=== PATIENT | male | born 1990 | race Caucasian/White ===

== ENCOUNTER 2024-04-27 08:55 | Outpatient (AMB) | payer OTHER, SELFPAY ==
--- NOTE | 2024-04-27 09:00 | MHC.PC.OV ---
Vital Signs 04/27/24 09:09 Height 5 ft 6.93 in Weight 246 lb 4 oz BMI 38.6 BP 110/80 Blood Pressure Location Lt brachial Position Sitting Respiration 16 Pulse 74 Pulse Source Pulse Oximeter Temp 97.6 F Temp Source Oral Pulse Oximetry (%) 96 Oxygen Delivery Method Room Air Intake Visit Reasons: Establish care Intake Note: New patient visit Allergies Penicillins Allergy (Unknown, Verified 04/27/24 09:05) Unknown codeine Allergy (Verified 04/27/24 09:05) Nausea Medication List - Last Reconciled 04/27/24 by Heather Patiño PA-C No Known Home Meds Tobacco use date assessed: 04/27/24 Dental Screening Dental Screen Date: 04/27/24 Did you have a dental visit in the last 12 months?: No Did you have a dental problem in the last 6 months where you did not have access to dental care?: No Was dental information given to patient?: Patient has dentist HPI Establish care HPI Details Patient is a 33-year-old male who presents today to establish care he is transferring from [place]. He states his last physical was over 5 years ago when he needs one. He states he was never really diagnosed with any medical issues but in the last couple years has had some issues with anxiety, depression and grief. HEENT: He states his ears feel blocked. He gets these sx this time of year. Denies any sinus pain or pressure. Does have seasonal allergies. Psych: He has been dealing with grief since loss of his mother last year. She was struck by a vehicle and he was responsible for dealing with everything related to the . He states that he had to handle the burial and medical decisions from the hospital. He states in the last six weeks he has also had to obtain custody of his 6 y/o niece. His sister is a drug addict and he states that his niece has experienced a lot of trauma and is barely verbal. They have been working with a therapist and he has had to work on potty training her. He has a 7 and 9-year-old son who have been overall doing okay with this transition. His is supportive. No SI/HI. Following with a therapist. He wonders about starting medication because he just feels overwhelmed. [facility] Medical History (Updated 04/27/24 @ 10:01 by Heather Patiño PA-C) Grief reaction with prolonged bereavement Generalized anxiety disorder Family History (Updated 04/27/24 @ 09:08 by Sabine Palacios CMA) Father Alcoholic Paternal Grandfather Alcoholic Other Substance use Social History (Updated 04/27/24 @ 09:07 by Sabine Palacios CMA) Housing: House Patient Tobacco Use Status: Former Tobacco user Cigarette Packs Per Day: 1 Years Smoked: 2 e-Cigarette/Vaping Use: Never Used Second Hand Smoke Exposure: No Substance Use Type: Former Substance User and Marijuana service: No Current occupational status: employed Current occupation: [employer] Current occupational exposures/hazards: Yes (chemicals) Cognitive needs: No Hearing needs: Yes (Hearing loss, tubes as a child. Possibly impacted cerum) Vision needs: No Questionnaire PHQ-9 Over the last 2 weeks, how often have you been bothered by any of the following problems? 1. Little interest or pleasure in doing things: more than half the days 2. Feeling down, depressed, or hopeless: nearly every day 3. Trouble falling or staying asleep, or sleeping too much: nearly every day 4. Feeling tired or having little energy: more than half the days 5. Poor appetite or overeating: more than half the days 6. Feeling bad about yourself - or that you are a failure or have let yourself or your family down: more than half the days 7. Trouble concentrating on things, such as reading the newspaper or watching television: several days 8. Moving or speaking so slowly that other people could have noticed. Or the opposite - being so fidgety or restless that you have been moving around a lot more than usual: not at all 9. Thoughts that you would be better off or of hurting yourself in some way: not at all Total score: 15 Depression Screening Interpretation: Positive Depression Screening Follow-up: Existing condition, In treatment and New Medication prescribed Depression Screening Done: Yes 79215 - PHQ-9 Billing: Yes Source: Developed by Drs. Surjit Sierra, Lenora Pedro, Juan Adams and colleagues, with an educational francheska from [employer]. Thrive Questionnaire Date Thrive assessed: 04/27/24 I am a: Patient What is your living situation today?: I have a steady place to live Within the past 12 months, did the food you bought not last and you didn't have the money to get more?: Never true Within the past 12 months, did you worry whether your food would run out before you got money to buy more?: Never true Do you have trouble paying for medicines?: No Do you have trouble getting transportation to medical appointments?: No Do you have trouble paying your heating and electricity bill?: No Do you have trouble taking care of your child, family member or friend?: No Do you have trouble with day-to-day activities such as bathing, preparing meals, shopping, managing finances, etc.?: No Are you currently unemployed and looking for a job?: No Are you interested in more education?: No Please select the resources that you would like help with: None Currently or been in a relationship where the following occur: No concerns reported THRIVE Score: 0 AUDIT C Alcohol Use Questionnaire (AUDIT-C) 1. How often do you have a drink containing alcohol?: 2-3 times a week 2. How many drinks containing alcohol do you have on a typical day when you are drinking?: 1 or 2 3. How often do you have six or more drinks on one occasion?: Never Total Score: 3 Score Reviewed/Action Taken: Yes WLI-7 AMB Questionnaire WIL-7 Date WIL - 7 assessed: 04/27/24 Feeling nervous, anxious, or on edge: 3 = Nearly every day Not being able to stop or control worryin = Nearly every day Worrying too much about different things: 2 = More than half the days Trouble relaxin = Nearly every day Being so restless that it is hard to sit still: 2 = More than half the days Becoming easily annoyed or irritable: 3 = Nearly every day Feeling afraid as if something awful might happen: 2 = More than half the days Total WIL-7 score (0-4 normal; 5-9 mild; 10-14 moderate; 15-21 severe): 18 Source: Developed by Drs. Surjit Sierra, Lenora Pedro, Juan Adams and colleagues, with an educational francheska from [employer] WIL-7 Assessment Billing WIL-7 Assessment Tool: WIL-7 Assessment [id number] Physical exam (Primary Care) Vital Signs: Last Vital Signs Temp 97.6 F 04/27/24 09:09 Pulse 74 04/27/24 09:09 Resp 16 04/27/24 09:09 BP 110/80 04/27/24 09:09 Pulse Ox 96 04/27/24 09:09 Oxygen Delivery Method Room Air 04/27/24 09:09 BMI result Body Mass Index 38.6 Tobacco/Smoking Status: Tobacco use Status Tobacco use date assessed 04/27/24 04/27/24 09:13 Patient Tobacco Use Status Former Tobacco user 04/27/24 09:13 e-Cigarette/Vaping Use Never Used 04/27/24 09:13 Depression Screening Interpretation: Positive Depression Screening Follow-up: Existing condition, In treatment and New Medication prescribed Currently or been in a relationship where the following occur: No concerns reported Const Orientation/consciousness: patient oriented x3 HENMT Ears: hearing grossly normal bilaterally, TM normal on the left and unable to visualize TM (cerumen impaction) on the right General nose exam: No nasal polyps present Face and sinus: Yes sinuses nontender Mouth: Normal oral and palatal mucosa present Eyes Pupils: Equal, round and reactive pupils present EOM: EOMs intact bilaterally Neck Neck: Yes full ROM and Yes no lymphadenopathy Thyroid: Thyroid normal Chest Chest palpation & inspection: normal inspection of the chest Resp Auscultation: clear to auscultation bilaterally Cardio Rate: regular rate Rhythm: regular rhythm Heart sounds: S1 normal heart sound present and S2 normal heart sound present Peripheral pulses: Peripheral pulses 2+ throughout GI Other: Soft, nontender Auscultation: normal bowel sounds Rectal Exam - Male: Yes deferred General: Yes no CVA tenderness Back/Spine/Pelvis Other: Nontender Back: no CVA tenderness Skin General skin exam: no rashes or lesions noted Neuro General: patient oriented x3, gait normal, CN's II-XI intact bilaterally and deep tendon reflexes 2+ bilaterally Cranial nerves: Yes Equal, round and reactive pupils present Motor exam (neuro): 5/5 motor strength present throughout Sensory Exam: double simultaneous stimulation for sensation normal Coordination: [id number] test normal and Romberg test negative Extrem General: Yes normal to inspection and Yes full ROM Psych Affect: normal affect Attitude: cooperative Thought process: Normal thought process present Thought content: Normal thought content present Insight: Good insight present (Psych) Judgement: Good judgement present (Psych) Assessment and Plan Assessment & Plan (1) Routine general medical examination at a [facility] care facility: Code(s): Z00.00 - Encounter for general adult medical examination without abnormal findings Plan: Health maintenance reviewed. Labs ordered today. (2) Generalized anxiety disorder: Code(s): F41.1 - Generalized anxiety disorder Plan: We will start on Zoloft. Discussed risks and benefits and adverse effects of this medication. Follow up in 4 weeks to be reassessed. Sooner if needed. Continue following with a therapist. (3) Grief reaction with prolonged bereavement: Code(s): F43.29 - Adjustment disorder with other symptoms Plan: As above. (4) Seasonal allergic rhinitis due to pollen: Code(s): J30.1 - Allergic rhinitis due to pollen Plan: We will start on Xyzal and Flonase. (5) Impacted cerumen of right ear: Code(s): H61.21 - Impacted cerumen, right ear Plan: Debrox drops ordered. Advised patient to use these and follow up for an ear lavage. Orders: Orders Comprehensive [place]. Panel Fast Today F41.1 - Generalized anxiety disorder, F43.29 - Adjustment disorder with other symptoms, Z00.00 - Encounter for general adult medical examination without abnormal findings Complete Blood Count Auto Diff Today F41.1 - Generalized anxiety disorder, F43.29 - Adjustment disorder with other symptoms, Z00.00 - Encounter for general adult medical examination without abnormal findings Lipid Panel Today F41.1 - Generalized anxiety disorder, F43.29 - Adjustment disorder with other symptoms, Z00.00 - Encounter for general adult medical examination without abnormal findings TSH reflex Free T4 Today F41.1 - Generalized anxiety disorder, F43.29 - Adjustment disorder with other symptoms, Z00.00 - Encounter for general adult medical examination without abnormal findings Medications: New levocetirizine (Xyzal) 5 mg PO DAILY 90 tabs 0RF fluticasone propionate 50 mcg/actuation (Flonase Allergy Relief) administer into each nostril 2 sprays intranasal DAILY 16 grams 0RF sertraline (Zoloft) 25 mg PO DAILY 30 tabs 1RF carbamide peroxide 6.5% (Debrox) 5 drps otic (ear) right Q12H 5 days 15 mL 0RF Coding Level of Care Code Est Pt Prev Care 18-39y(53185) Diagnoses Routine general medical examination at a health care facility Z00.00 Generalized anxiety disorder F41.1 Grief reaction with prolonged bereavement F43.29 Seasonal allergic rhinitis due to pollen J30.1 Impacted cerumen of right ear H61.21 Additional Codes WIL-7 Assessment Billing - WIL-7 Assessment Tool: WIL-7 Assessment [id number] ([id number])
[2024-04-27 09:09] VITALS: BP 110/80; PULSE 74; RESP 16; TEMP 36.4; O2SAT 96; BMI 38.6
== END 2024-04-27 09:57 | disposition home or self-care (01) ==
LOC: HO.HMGFM 08:56
PROVIDERS: PCP Physician Assistant; Visit Provider Physician Assistant
DX: Z00.00 Encounter for general adult medical examination without abnormal findings (principal); F41.1 Generalized anxiety disorder; F43.29 Adjustment disorder with other symptoms; J30.1 Allergic rhinitis due to pollen; H61.21 Impacted cerumen, right ear
CPT/HCPCS: 96127; 99395

== ENCOUNTER 2024-04-27 10:00 | Outpatient (REF) | payer OTHER, SELFPAY ==
[2024-04-27 11:40] LABS: MANUAL DIFF FLAG NO
[2024-04-27 11:45] LABS: Basophils Percent Auto 0.4 % (0-2); Eosinophils Absolute Auto 0.2 X10*3/uL (0.0-0.4); Eosinophils Percent Auto 2.4 % (0-4); Hematocrit 44.2 % (42.0-52.0); Hemoglobin 14.7 g/dl (14.0-18.0); Imm Gran Abs Auto 0.04 X10*3/uL (0.00-0.03); Imm Gran Pct Auto 0.5 % (0.0-0.4); Lymphocytes Absolute Auto 2.2 X10*3/uL (1.2-4.9); Lymphocytes Percent Auto 25.4 % (20-40); Mean Corpuscular HGB Conc 33.3 g/dl (31.0-36.0); Mean Corpuscular Hemoglobin 29.3 pg (27.0-33.0); Mean Platelet Volume 10.1 fL (9.4-12.4); Monocytes Absolute Auto 0.6 X10*3/uL (0.1-1.2); Monocytes Percent Auto 7.5 % (2-11); Neutrophils Absolute Auto 5.4 x10*3/uL (2.0-8.3); Neutrophils Percent Auto 63.8 % (45-73); Platelet Count 265 X10*3/uL (160-400); Red Blood Count 5.02 X10*6/uL (4.60-5.80); Red Cell Distribution Width 12.5 % (11.0-16.0); White Blood Count 8.5 X10*3/uL (4.8-10.8)
[2024-04-27 12:37] LABS: Alanine Aminotransferase 25 U/L (0-40); Albumin Level 4.5 g/dL (3.5-5.0); Alkaline Phosphatase 44 U/L (39-117); Anion Gap 12 (12-20); Aspartate Amino Transferase 21 U/L (5-37); Bilirubin Total 0.6 mg/dL (0.0-1.0); Blood Urea Nitrogen 19 mg/dL (9-16); Calcium 9.2 mg/dL (8.4-10.2); Carbon Dioxide 25 mmol/L (22-29); Chloride 106 mmol/L (96-108); Cholesterol 191 mg/dL (<200); Estimated Glomerular Filt Rate > 60; Glucose Fasting 97 mg/dL (60-99); HDL Cholesterol 61 mg/dL (>40); LDL Cholesterol Calculated 117 mg/dL (<100); Potassium 4.1 mmol/L (3.3-5.1); Sodium 139 mmol/L (135-145); Total Protein 7.4 g/dL (6.5-8.0); Triglycerides 69 mg/dL (<150)
[2024-04-27 12:42] LABS: TSH reflex Free T4 1.36 uIU/mL (0.32-4.0)
== END 2024-04-27 10:01 | disposition home or self-care (01) ==
LOC: HO.WFDLDS 10:00
PROVIDERS: Visit Provider Physician Assistant
DX: Z00.00 Encounter for general adult medical examination without abnormal findings (principal); F41.1 Generalized anxiety disorder; F43.29 Adjustment disorder with other symptoms
CPT/HCPCS: 36415; 80053; 80061; 84443; 85025

== ENCOUNTER 2024-05-31 10:06 | Outpatient (AMB) | payer OTHER, SELFPAY ==
--- NOTE | 2024-05-31 10:15 | MHC.PC.OV ---
Vital Signs 05/31/24 10:16 Height 5 ft 6.93 in Weight 257 lb 2 oz BMI 40.4 BP 102/72 Blood Pressure Location Lt brachial Position Sitting Pulse 70 Pulse Source Pulse Oximeter Pulse Oximetry (%) 94 Oxygen Delivery Method Room Air Intake Visit Reasons: follow up Intake Note: Follow up Allergies Penicillins Allergy (Unknown, Verified 05/31/24 10:15) Unknown codeine Allergy (Verified 05/31/24 10:15) Nausea Medication List - Last Reconciled 05/31/24 by Heather Patiño PA-C fluticasone propionate 50 mcg/actuation (Flonase Allergy Relief) 2 sprays intranasal DAILY Tobacco use date assessed: 04/27/24 Dental Screening Dental Screen Date: 04/27/24 HPI follow up HPI Details Patient is a 33-year-old male who presents today for follow up. Psych: At our last visit I started him on Zoloft for depression and anxiety. He states that he is tolerating this well but does not want to increase the dosage because he is worried about the decreased libido. States that he does not want to really beyond this medication because he thinks it could be impacting his sex drive. He states that he has a healthy relationship with his and does not want that to change. He is interested in trying something different. States that at times he just lacks the motivation to do all of the things that they are committed to. He has his children on multiple sports teams and he recently has taken in his niece through [employer]. He states at work sometimes he has a hard time concentrating. He states that his mind is constantly running. He has a hard time staying on task. No SI/HI. [facility] Medical History (Updated 05/31/24 @ 10:38 by Heather Patiño PA-C) Grief reaction with prolonged bereavement Generalized anxiety disorder Family History (Updated 04/27/24 @ 09:08 by Sabine Palacios CMA) Father Alcoholic Paternal Grandfather Alcoholic Other Substance use Social History (Updated 04/27/24 @ 09:07 by Sabine Palacios CMA) Housing: House Patient Tobacco Use Status: Former Tobacco user Cigarette Packs Per Day: 1 Years Smoked: 2 e-Cigarette/Vaping Use: Never Used Second Hand Smoke Exposure: No Substance Use Type: Former Substance User and Marijuana service: No Current occupational status: employed Current occupation: [employer] Current occupational exposures/hazards: Yes (chemicals) Cognitive needs: No Hearing needs: Yes (Hearing loss, tubes as a child. Possibly impacted cerum) Vision needs: No Questionnaire Thrive Questionnaire Date Thrive assessed: 04/27/24 WIL-7 AMB Questionnaire WIL-7 Date WIL - 7 assessed: 04/27/24 Source: Developed by Drs. Surjit Sierra, Lenora Pedro, Juan Adams and colleagues, with an educational francheska from [employer]. Physical exam (Primary Care) Vital Signs: Last Vital Signs Pulse 70 05/31/24 10:16 BP 102/72 05/31/24 10:16 Pulse Ox 94 05/31/24 10:16 Oxygen Delivery Method Room Air 05/31/24 10:16 BMI result Body Mass Index 40.4 Tobacco/Smoking Status: Tobacco use Status Tobacco use date assessed 04/27/24 05/31/24 10:20 Patient Tobacco Use Status Former Tobacco user 05/31/24 10:20 e-Cigarette/Vaping Use Never Used 05/31/24 10:20 Thrive Assessment: Date of Thrive Assessment Date Thrive assessed 04/27/24 05/31/24 10:20 Const Orientation/consciousness: patient oriented x3 HENMT Ears: hearing grossly normal bilaterally Neck Thyroid: Thyroid normal Lymphatic: no lymphadenopathy noted Resp Auscultation: clear to auscultation bilaterally Cardio Rate: regular rate Rhythm: regular rhythm Heart sounds: S1 normal heart sound present and S2 normal heart sound present GI Inspection: Yes normal to inspection Palpation (GI): Soft to palpation and Other GI palpation findings present (nontender, no cva tenderness) Auscultation: normoactive bowel sounds Rectal Exam - Male: Yes deferred Skin General skin exam: no rashes or lesions noted Neuro General: patient oriented x3, gait normal and no focal motor deficits Results Reviewed Results Reviewed: Laboratory Tests 04/27/24 10:01 Sodium 139 Potassium 4.1 Chloride 106 BUN 19 H Creatinine 0.69 Estimated GFR > 60 Fasting Glucose 97 AST 21 ALT 25 Cholesterol 191 LDL Cholesterol, Calc 117 H HDL Cholesterol 61 TSH 1.36 Assessment and Plan Assessment & Plan (1) Generalized anxiety disorder: Code(s): F41.1 - Generalized anxiety disorder Plan: We will discontinue the Zoloft and start Wellbutrin. Discussed risks and benefits and adverse effects of this medication. Return in 4-6 weeks for recheck. Sooner if needed. (2) Grief reaction with prolonged bereavement: Code(s): F43.29 - Adjustment disorder with other symptoms Plan: As above. (3) Difficulty concentrating: Code(s): R41.840 - Attention and concentration deficit Plan: As above. No formal diagnosis of attention deficit disorder. Medications: New bupropion HCl XL 150 mg PO QAM 90 tabs 0RF Coding Level of Care Code Est Pt Level 4 (24757) Diagnoses Generalized anxiety disorder F41.1 Grief reaction with prolonged bereavement F43.29 Difficulty concentrating R41.840
[2024-05-31 10:16] VITALS: BP 102/72; PULSE 70; O2SAT 94; BMI 40.4
== END 2024-05-31 10:49 | disposition home or self-care (01) ==
PROVIDERS: PCP Physician Assistant; Visit Provider Physician Assistant
DX: F41.1 Generalized anxiety disorder (principal); F43.29 Adjustment disorder with other symptoms; R41.840 Attention and concentration deficit
CPT/HCPCS: 99214